=== PATIENT | female | born 1975 | race Caucasian/White ===

== ENCOUNTER 2018-01-31 11:28 | Outpatient (REF) | payer OTHER, SELFPAY ==
[2018-01-31 22:06] LABS: TSH 1.38 uIU/mL (0.358-3.74)
== END 2018-01-31 11:29 ==
LOC: NCHCN 11:28
PROVIDERS: PCP Nurse Practitioner Family; Visit Provider Registered Nurse
DX: R53.83 Other fatigue (principal)
CPT/HCPCS: 84443

== ENCOUNTER 2019-04-03 08:56 | Outpatient (REF) | payer OTHER, SELFPAY ==
[2019-04-03 22:41] LABS: Calculated LDL 84 mg/dL; Cholesterol 193 mg/dL (50-200); Glucose 89 mg/dL (70-100); HDL Cholesterol 98 mg/dL (40-60); Triglyceride 56 mg/dL (30-150)
== END 2019-04-03 09:16 ==
LOC: NCHCN 08:56
PROVIDERS: PCP Nurse Practitioner Family; Visit Provider Registered Nurse
DX: R03.0 Elevated blood-pressure reading, without diagnosis of hypertension (principal); Z13.220 Encounter for screening for lipoid disorders; Z13.1 Encounter for screening for diabetes mellitus
CPT/HCPCS: 80061; 82947

== ENCOUNTER 2019-04-05 19:01 | Outpatient (REF) | payer OTHER, SELFPAY ==
[2019-04-09 13:33] LABS: Chlamydia Result Negative (Negative); GC Result Negative (Negative); Specimen Description VAGINAL
== END 2019-04-05 19:21 ==
LOC: NCHCN 19:01
PROVIDERS: PCP Nurse Practitioner Family; Visit Provider Nurse Practitioner Family
DX: Z11.3 Encounter for screening for infections with a predominantly sexual mode of transmission (principal)
CPT/HCPCS: 87491; 87591

== ENCOUNTER 2020-04-10 08:46 | Outpatient (REF) | payer OTHER, SELFPAY ==
--- NOTE | 2020-04-10 08:30 | PAPFT_PTH ---
PATIENT: Jena Morejon LOC: [facility]#:[id number] AGE/SX: 45/F ROOM: RE04/10/[address]: Abbey Elizondo : 1975 BED: DIS: 04/10/2020 SPEC #: [id number] RECD: 04/11/20 12:58 STATUS: ALYSSA REQ #: [id number] MADELEINE: 04/10/20 08:[address]: Abbey Elizondo DEPT: [facility] Cytology RECD BY: Abigail Rao ENTERED: 04/11/20 12:58 SP TYPE: PAPFT OTHR DR: Latonia Norman Tissues: 1 - CX/ENDOCX FOR PAP SMEARS Procedures: PAP THIN PREP/[facility] Screening Comments: [id number] (CHLAMYDIA/GC)
[2020-04-10 21:05] LABS: Calculated LDL 84 mg/dL (<100); Cholesterol 183 mg/dL (<200); Glucose 88 mg/dL (74-106); HDL Cholesterol 87 mg/dL (40-60); Triglyceride 61 mg/dL (<150)
[2020-04-15 07:15] LABS: Chlamydia Result Negative (Negative); GC Result Negative (Negative)
== END 2020-04-10 09:06 ==
LOC: NCHCN 08:46
PROVIDERS: PCP Nurse Practitioner Family; Visit Provider Registered Nurse
DX: Z00.00 Encounter for general adult medical examination without abnormal findings (principal); Z13.220 Encounter for screening for lipoid disorders; Z11.3 Encounter for screening for infections with a predominantly sexual mode of transmission; Z12.4 Encounter for screening for malignant neoplasm of cervix; R87.611 Atypical squamous cells cannot exclude high grade squamous intraepithelial lesion on cytologic smear of cervix (ASC-H)
CPT/HCPCS: 80061; 82947; 87491; 87591; 88142

== ENCOUNTER 2020-05-05 16:41 | Outpatient (REF) | payer OTHER, SELFPAY ==
[2020-05-08 14:30] LABS: SARS-CoV-2 RNA Undetected (Undetected); SARS-CoV-2 Specimen Source Nasal
== END 2020-05-05 17:01 ==
LOC: NCHCN 16:41
PROVIDERS: PCP Nurse Practitioner Family; Visit Provider Nurse Practitioner Family
DX: J06.9 Acute upper respiratory infection, unspecified (principal)
CPT/HCPCS: U0003

== ENCOUNTER 2020-05-06 18:43 | Outpatient (REF) | payer OTHER, SELFPAY | END 2020-05-06 19:03 | LOC: NCHCN 18:43 | PROVIDERS: PCP Nurse Practitioner Family; Visit Provider Nurse Practitioner Family | DX: J02.9 Acute pharyngitis, unspecified (principal) | CPT/HCPCS: 87070 ==

== ENCOUNTER 2021-02-20 16:26 | Outpatient (REF) | payer OTHER, SELFPAY ==
[2021-02-20 20:32] LABS: Abs Immature Grans 0.02 10^3/uL (0.0-0.06); Absolute Basophil Count 0.05 10^3/uL (0.0-0.2); Absolute Eosinophil Count 0.07 10^3/uL (0.0-0.7); Absolute Lymphocyte Count 1.77 10^3/uL (1.2-3.4); Absolute Monocyte Count 0.82 10^3/uL (0.1-0.8); Absolute Neutrophil Count 7.17 10^3/uL (1.2-6.7); Basophils % 0.5; Eosinophils % 0.7; HCT 44.5 % (36.0-46.0); HGB 15.2 g/dL (11.2-15.7); Immature Grans % 0.2; Lymphocytes % 17.9; MCH 31.6 pg (27.0-33.0); MCHC 34.2 % (32.0-36.0); MCV 92.5 fL (80-95); MPV 10.3 fL (8.0-11.0); Monocytes % 8.3; Neutrophils % 72.4; Nucleated RBC 0 %; Platelet Count 353 10^3/uL (130-400); RBC 4.81 10^6/uL (3.93-5.22); RDW 12.7 % (11.7-14.6); RDW-SD 43.3 fL
[2021-02-20 20:54] LABS: ALT 52 U/L (14-59); AST 29 U/L (15-37); Albumin 4.4 g/dL (3.4-5.0); Alkaline Phosphatase 65 U/L (46-116); Anion Gap 9.5 mmol/L (3-11); BUN 9 mg/dL (7-18); Bilirubin, Total 0.7 mg/dL (0.2-1.0); CO2 27.5 mmol/L (21.0-32.0); CREATININE 0.7 mg/dL (0.55-1.02); Calcium 9.3 mg/dL (8.5-10.1); Chloride 97 mmol/L (98-107); Glucose 83 mg/dL (74-106); Lipase 76 U/L (73-393); Potassium 3.7 mmol/L (3.5-5.1); Sodium 134 mmol/L (136-145); Total Protein 7.4 g/dL (6.4-8.2)
== END 2021-02-20 16:27 | disposition home or self-care (01) ==
LOC: NCHCN 16:26
PROVIDERS: PCP Nurse Practitioner Family; Visit Provider Family Medicine
DX: R10.13 Epigastric pain (principal); R19.7 Diarrhea, unspecified
CPT/HCPCS: 80053; 83690; 87505; 85025

== ENCOUNTER 2021-04-17 08:40 | Outpatient (REF) | payer OTHER, SELFPAY ==
--- NOTE | 2021-04-17 08:30 | PAPFT_PTH ---
PATIENT: Jena Morejon LOC: [facility]#:[id number] AGE/SX: 46/F ROOM: RE04/17/[address]: Abbey Elizondo : 1975 BED: DIS: 04/17/2021 SPEC #: [id number] RECD: 04/17/21 17:40 STATUS: ALYSSA REQ #: [id number] MADELEINE: 04/17/21 08:[address]: Abbey Elizondo DEPT: [facility] Cytology RECD BY: Abigail Rao ENTERED: 04/17/21 17:41 SP TYPE: PAPFT OTHR DR: Latonia Norman Tissues: 1 - CX/ENDOCX FOR PAP SMEARS Procedures: PAP THIN PREP/UVM Screening HPV DNA PROBE Comments: [id number] (CHLAMYDIA/GC)
[2021-04-21 12:03] LABS: Chlamydia Result Negative (Negative); GC Result Negative (Negative)
== END 2021-04-17 08:41 | disposition home or self-care (01) ==
LOC: NCHCN 08:40
PROVIDERS: PCP Nurse Practitioner Family; Visit Provider Registered Nurse
DX: Z12.4 Encounter for screening for malignant neoplasm of cervix (principal); Z11.3 Encounter for screening for infections with a predominantly sexual mode of transmission; Z11.51 Encounter for screening for human papillomavirus (HPV)
CPT/HCPCS: 87491; 87591; 88142; 87624

== ENCOUNTER 2023-01-05 10:45 | Outpatient (REF) | payer OTHER, SELFPAY | END 2023-01-05 10:46 | disposition home or self-care (01) | LOC: NCHCN 10:45 | PROVIDERS: PCP Nurse Practitioner Family; Visit Provider Registered Nurse | DX: R30.0 Dysuria (principal) | CPT/HCPCS: 87086 ==

== ENCOUNTER 2023-07-01 11:30 | Outpatient (REF) | payer OTHER, SELFPAY ==
--- OUTSIDE RECORDS SUMMARY | 2023-07-01 11:32 | XMS_ITS | Continuity of Care Document ---
Author Name [facility] Address [address] [place] [address] Organization [facility] Address [address] [place] [address] Allergies, Adverse Reactions, Alerts No allergy information available. Medications No medication information available. Problem List No problem information available. Procedures No known history of procedures. Relevant Diagnostic Tests and/or Laboratory Data No known relevant diagnostic tests, laboratory data, and/or discharge summary. Hospital Discharge Instructions No known hospital discharge instructions. Functional Status No known functional status. Immunizations No known immunizations. Payers Payer Name Policy Type Covered Libertarian Covered Libertarian Id Relationship Subscriber Subscriber Id [employer]ET[employer] Commercial RAI DOMINGO [id number] Self/Same as Patient RAI DOMINGO [id number] SELF PAY Personal Plan of Care No Known Plan of Care Information Social History No known social history. Vital Signs No known vital signs results.
--- OUTSIDE RECORDS SUMMARY | 2023-07-01 11:32 | XMS_ITS | CCD ---
Author Name Unknown Address [address] [place] [address] [id number] Organization Unknown Address [address] [place] [address] [phone] Care Team Providers Care Bumper Straightener Name Role Phone NIMISHA RADER Attending Physician [phone] NIMISHA RADER Rounding (Secondary) Physician [phone] Vital Signs Unknown or Not Available. Allergies Unknown or Not Available. Procedures Unknown or Not Available. History of Immunizations Unknown or Not Available. Problems Unknown or Not Available. Results Unknown or Not Available. Active Medications Unknown or Not Available. Medications Administered During Visit Unknown or Not Available. Encounters Encounter Diagnosis Diagnosis Code Start Date Carpal tunnel syndrome, right upper limb [id number] 03/09/2022 Social History Smoking Status Code Start Date End Date Current some day smoker [id number] 08/19/2019 Patient Decision Aids Unknown or Not Available. Discharge Instructions You were admitted to [facility] on 03/09/2022 13:11 with a principal diagnosis of CTS of right arm You were discharged from [facility] on 03/09/2022 00:00 Should you have any questions prior to discharge, please contact a member of your healthcare team. If you have left the hospital and have any questions, please contact your primary care physician. Chief Complaint and Reason For Visit Unknown or Not Available. Function Status Unknown or Not Available. Plan of Care Unknown or Not Available. Referral/Transition of Care Unknown or Not Available.
--- OUTSIDE RECORDS SUMMARY | 2023-07-01 11:32 | XMS_ITS | Continuity of Care Document ---
Author Name [facility] Address [address] [place] [address] Organization [facility] Address [address] [place] [address] Care Team Providers Care Basketballs And Footballs Reverser Name Role Phone Maurilio Ch Primary Care Physician Allergies, Adverse Reactions, Alerts No known allergies. Medications Active Medications Medication Dose Units Route Sig Qty Start Date St atus Multi Vitamin February 21, 2020 Active Naproxen 500 MG ORAL TWICE A DAY PRN For pain 30 February 21, 2020 Active Discontinued Medications Medication Dose Units Route Sig Qty Start Date Discontin ued Date Status Dextroamphetamin e-Amphetamine ORAL FebruaryFebruary 21, 2020 Discontinued Problem List Active Problems Medical Problem Onset Date Status Acute wrist pain Active Procedures Procedure Date Status Finger(s) 2 vw Min LT November 14, 2019 completed Relevant Diagnostic Tests and/or Laboratory Data No known relevant diagnostic tests, laboratory data, and/or discharge summary. Hospital Discharge Instructions Additional Discharge Instructions Continue to use ice compression 20min on and 20min off 3x-4x daily then consider warm compression Continue to use the right wrist brace support for the next 10-14 days especially at work and take it off when at home You can take Naproxen 500mg every 12 hours (do not combine with ibuprofen) and/or Tylenol 500mg every 4 hours for pain for 3-5 days. Please f/u with PCP for further evaluation of the wrist sprain if pain persist Return to clinic/er if symptoms worsening such as increase pain, redness/swelling/numbness/tingling, fever/chills Instruction/Education Provided COVID 19 General Instructions- decrease the spread of coronavirus ([facility]) Hospital Discharge Medications Medication Dose Units Route Sig Qty Days Order Date Status Ins tructions Dextroampheta mine-Amphetam ine ORAL February 21, 2020 Discontinued Multi Vitamin Se ptember 2019 Active Naproxen 500 MG ORAL TWICE A DAY PRN For pain 30 February 21, 2020 Active Encounters Encounter Facility Location Admit/Visit Date Discharge/Departure Date Attending Provider Departed Emergency [facility] Urgent [facility] February 21, 2020 4:55pm February 21, 2020 6:34pm Departed Clinical [facility] DI Walk In [facility] November 14, 2019 8:57am November 14, 2019 8:58am Tanya Ly Functional Status Query Response Date Recorded Comment Living Situation With Family February 21, 2020 6:17pm Immunizations No known immunizations. Payers Payer Name Policy Type Covered Alliance Party Covered Alliance Party Id Relationship Subscriber Subscriber Id AETNA Commercial RAI CHAYO [id number] Self/Same as Patient RAI CHAYO [id number] [employer] Commercial RAI CHAYO [id number] Self/Same as Patient RAI CHAYO [id number] SELF PAY Personal Plan of Care Instructions COVID 19 General Instruction s- decrease the spread of coronavirus ([facility]) Social History Query Response Date Recorded Comment Alcohol Use No February 21, 2020 6:17pm Smoking Status Never smoker February 21, 2020 6:17pm substance use type does not use February 21, 2020 6:17 pm Query Response Start Date Stop Date Smoking Status Never smoker Vital Signs Vital Reading Result Reference Range Collection Date/Time Height 5 ft 7 in February 20 5:35pm Weight 64.864 kg February 20 5:35pm Temperature 98.2 F 97.6 F-99.6 F February 20 020 5:35pm Pulse 65 BPM 60-100 February 20 5:35pm Respiration 20 RPM 12-February 20 5:35pm Pulse Oximetry 98 % 95-100 February 21, 2020 5:35pm Blood Pressure Systolic 118 100-140 Sept emb2019 5:35pm Blood Pressure Diastolic 61 50-85 Sep tember 2019 5:35pm Body Mass Index 22.4 February 21, 2020 5:35pm
--- OUTSIDE RECORDS SUMMARY | 2023-07-01 11:32 | XMS_ITS | Continuity of Care Document ---
Author Name Unknown Address [address] [place] [address] [facility] Address [address] [place] [address] Phone Care Team Providers Care Smalltalk Developer Name Role Phone Maurilio Ch Primary Care Provider LUCY Ly Attending Provider [phone] Allergies, Adverse Reactions, Alerts No known allergies. Medications Medication Status Dose Units Route Sig Qty Days Start Date End Date Instructions Dextroamphe tamine-Amph etamine Discontinue d PO February 21, 2020 5:33pm Septembe r 2019 5:34pm Multi Vitamin Active February 21, 2020 5:34pm Naproxen Active 500 MG PO TWICE A DAY February 21, 2020 6:28pm Problems Active Problems Medical Problem Onset Date Status Acute wrist pain Active Procedures Procedure Date Performed Status Finger(s) 2 vw Min LT November 14, 2019 12:00am com pleted Relevant Diagnostic Tests and/or Laboratory Data Diagnostic Imaging Reports Report Dictated Date/Time Dictated By Status Radiology Report November 14, 2019 10:17am Sweetie su MD completed [facility] RADIOLOGY REPORT PATIENT NAME: RAI DOMINGO 2614 DATE OF : 1975 ATTENDING/ER PHYSICIAN: Tanya Ly NP ER/ATTENDING PHYSICIAN: PRIMARY CARE PHYS: Maurilio Ch MD ADMITTING PHYSICIAN: CONSULTING PHYSICIAN: PROCEDURE DATE: 11/14/19 REPORT STATUS: Signed DICTATING PHYSICIAN: Sweetie Cannon MD REASON FOR EXAM: DISTAL IP JOINT FINGER PAIN, LEFT INDEX STUDY: Finger(s) 2 vw Min LT CLINICAL HISTORY: Distal interphalangeal joint finger pain of left index finger. COMPARISON: None. FINDINGS/IMPRESSION: There is no acute fracture or dislocation. No radiopaque foreign bodies are noted within the soft tissues. There are no significant degenerative changes. dd: 11/14/19 1017 <Electronically signed by Sweetie Cannon MD in OV> 11/14/19 1018 Advance Directives Advance Directive Response Recorded Date/ Time Does patient have an Advanced Directive? No December 03, 2013 9:28am Do we have a copy on file here at [facility]? No November 13, 2019 4:15pm Pt has a Living Will? No December 03, 2013 9:28am Do we have a copy on file here at [facility]? No November 13, 2019 4:15pm Pt has a Power of Assembler Steam [employer] Turbine? No December 03, 2013 9:28am Do we have a copy on file here at [facility]? No November 13, 2019 4:15pm Chief Complaint and Reason for Visit Chief Complaint LT FINGER-LT FINGER PAIN/INJURY Encounters Encounter Location(s) Arrival/Admit Date Discharge/Depart Date Provider(s) Departed Clinical [facility] In [facility] November 14, 2019 8:57am November 14, 2019 8:58am Chetna Martínez NP Departed Emergency [facility] [facility] Urgent [facility] February 21, 2020 4:55pm February 21, 2020 6:34pm null Assessments No Assessments Information Available Functional Status Observation Response Date Recorded Living Situation With Family February 21, 2020 6:17pm Goals Goals may be documented in an alternate section. Mental Status No Mental Status Information Available Medical Equipment No Medical Equipment Information available Insurance Providers Guarantor RAI DOMINGO Address [address] [place] [id number] Contact Info. Home Phone: Payer Policy Id Coverage Id Subscriber's Name Subscriber Id Effective Date Expiration Date ZACKERY [id number] RAI DOMINGO [id number] [employer] [id number] 1 [id number] RAI DOMINGO [id number] SELF PAY Self N/A Plan of Treatment Future Tests Future scheduled test information is unavailable Pending Tests Pending diagnostic test information is unavailable Future Visits Future appointment information is unavailable Referrals to Other Providers Reason for Referral Referral Start Date Provider Provider Contact Information Provider Address Maurilio Ch MD Work Phone: [address] [facility] [address] Future Procedures Future procedure information is unavailable Future Medications Future medication information is unavailable Patient Instructions COVID 19 General Instruction s- decrease the spread of coronavirus ([facility]) Social History Smoking Status Status Date of Observation Never smoked tobacco (finding) February 21, 2020 6:17pm Observation Status Observation Response Date of Response Alcohol Use No February 20 6:17pm substance use type does not use February 6:17pm Smoking Status Never smoker February 20 6:17pm Assigned Sex Female Vital Signs Vital Reading Result Reference Range Collection Date/Time Height 67 [in_i] February 21, 2020 5:35pm Weight 64.86 kg February 21, 2020 5:35pm Body Temperature 98.2 [degF] 97.6-99.6 February 202019 5:35pm Heart Rate 65 /min 60-100 February 21, 2020 5:35pm Respiratory rate 20 /min 12-24 February 202019 5:35pm Oxygen saturation by Pulse oximetry 98 % 95-100 February 21, 2020 5:35pm BP Systolic 118 mm[Hg] 100-140 February 21, 2020 5:35pm BP Diastolic 61 mm[Hg] 50-85 February 21, 2020 5:35pm BMI (Body Mass Index) 22.4 kg/m2 2019 5:35pm
--- OUTSIDE RECORDS SUMMARY | 2023-07-01 11:32 | XMS_ITS | Continuity of Care Document ---
Author Name [facility] Address [address] [place] [address] Organization [facility] Address [address] [place] [address] Care Team Providers Care Guest Services Attendant Name Role Phone Maurilio Ch Primary Care Physician Tanya Ly Attending Physician [phone] Allergies, Adverse Reactions, Alerts No allergy information available. Medications No medication information available. Problem List No problem information available. Procedures Procedure Date Status Finger(s) 2 vw Min LT November 14, 2019 completed Relevant Diagnostic Tests and/or Laboratory Data No known relevant diagnostic tests, laboratory data, and/or discharge summary. Chief Complaint and Reason for Visit Encounter Admit Date Chief Complaint Reason for V isit Departed Clinical November 14, 2019 8:57am LT FINGER- LT FINGER PAIN/INJURY Hospital Discharge Instructions No known hospital discharge instructions. Encounters Encounter Facility Location Admit/Visit Date Discharge/Departure Date Attending Provider Departed Clinical [facility] DI Walk In [facility] November 14, 2019 8:57am November 14, 2019 8:58am Tanya Ly Functional Status No known functional status. Immunizations No known immunizations. Payers Payer Name Policy Type Covered Alliance Party Covered Alliance Party Id Relationship Subscriber Subscriber Id [employer]ET[employer] Commercial RAI CHAYO [id number] Self/Same as Patient RAI CHAYO [id number] [employer] Commercial RAI CHAYO [id number] Self/Same as Patient RAI CHAYO [id number] SELF PAY Personal Plan of Care No Known Plan of Care Information Social History No known social history. Vital Signs No known vital signs results.
--- OUTSIDE RECORDS SUMMARY | 2023-07-01 11:32 | XMS_ITS | CCD ---
Author Name Unknown Address [address] [place] [address] [phone] Organization Unknown Address [address] [place] [address] [phone] Care Team Providers Care Industrial Chemicals Supervisor Name Role Phone HAYDEE PRICE Attending Physician [phone] Vital Signs Unknown or Not Available. Allergies Unknown or Not Available. Procedures Unknown or Not Available. History of Immunizations Unknown or Not Available. Problems Unknown or Not Available. Results Unknown or Not Available. Active Medications Unknown or Not Available. Medications Administered During Visit Unknown or Not Available. Encounters Encounter Diagnosis Diagnosis Code Start Date Abnormal uterine and vaginal bleeding, unspecifi ed N939 04/05/2023 Social History Smoking Status Code Start Date End Date Current some day smoker [id number] 08/19/2019 Patient Decision Aids Unknown or Not Available. Discharge Instructions You were admitted to [facility] on 04/05/2023 12:43 with a principal diagnosis of Abnormal uterine and vaginal bleeding, unspecified You were discharged from [facility] on 04/05/2023 12:43 Should you have any questions prior to discharge, please contact a member of your healthcare team. If you have left the hospital and have any questions, please contact your primary care physician. Chief Complaint and Reason For Visit Chief Complaint Date of Onset UTERINE BLEEDING Function Status Unknown or Not Available. Plan of Care Unknown or Not Available. Referral/Transition of Care Unknown or Not Available.
--- OUTSIDE RECORDS SUMMARY | 2023-07-01 11:32 | XMS_ITS | Continuity of Care Document ---
Author Name Unknown Address [address] [place] [address] Phone Organization [facility] Address [address] [place] [address] Phone Care Team Providers Care Glass Products Inspector Name Role Phone Maurilio Ch Primary Care Provider LUCY Ly Attending Provider [phone] Allergies, Adverse Reactions, Alerts No allergy information available. Medications No medication information available. Problems No problem information available. Procedures Procedure Date Performed Status Finger(s) 2 vw Min LT November 14, 2019 12:00am com pleted Relevant Diagnostic Tests and/or Laboratory Data Diagnostic Imaging Reports Report Dictated Date/Time Dictated By Status Radiology Report November 14, 2019 10:17am Sweetie su MD completed [facility] RADIOLOGY REPORT PATIENT NAME: RAI DOMINGO 2414 [...] have a copy on file here at [facility]? No November 13, 2019 4:15pm Pt has a Living Will? No December 03, 2013 9:28am Do we have a copy on file here at [facility]? No November 13, 2019 4:15pm Pt has a Power of Blanket Winder Helper? No December 03, 2013 9:28am Do we have a copy on file here at [facility]? No November 13, 2019 4:15pm Chief Complaint and Reason for Visit Chief Complaint LT FINGER-LT FINGER PAIN/INJURY Encounters Encounter Location(s) Arrival/Admit Date Discharge/Depart Date Provider(s) Departed Clinical [facility]- Walk In [facility] November 14, 2019 8:57am November 14, 2019 8:58am Chetna Martínez NP Assessments No Assessments Information Available Functional Status No Functional Status information available Goals Goals may be documented in an alternate section. Mental Status No Mental Status Information Available Medical Equipment No Medical Equipment Information available Insurance Providers Guarantor RAI DOMINGO Address [address] [place] [address] Contact Info. Home Phone: Payer Policy Id Coverage Id Subscriber's Name Subscriber Id Effective Date Expiration Date A[employer] [id number] RAI DOMING[facility] [id number] [id number] 1 [id number] RAI DOMINGO [id number] SELF PAY Self N/A Social History Assigned Sex Female
--- OUTSIDE RECORDS SUMMARY | 2023-07-01 11:32 | XMS_ITS | CCD ---
Author Name Unknown Address [address] [place] [address] [phone] Organization Unknown Address [address] [place] [address] [phone] Care Team Providers Care Can Dragger Name Role Phone KEIKO APPLE Attending Physician [phone] Vital Signs Unknown or Not Available. Allergies Unknown or Not Available. Procedures Unknown or Not Available. History of Immunizations Unknown or Not Available. Problems Unknown or Not Available. Results Unknown or Not Available. Active Medications Unknown or Not Available. Medications Administered During Visit Unknown or Not Available. Encounters Encounter Diagnosis Diagnosis Code Start Date Diarrhea, unspecified R197 03/02/2021 Social History Smoking Status Code Start Date End Date Current some day smoker [id number] 08/19/2019 Patient Decision Aids Unknown or Not Available. Discharge Instructions You were admitted to [facility] on 03/02/2021 09:01 with a principal diagnosis of Diarrhea, unspecified You were discharged from [facility] on 03/02/2021 09:01 Should you have any questions prior to [...]
--- OUTSIDE RECORDS SUMMARY | 2023-07-01 11:32 | XMS_ITS | Continuity of Care Document ---
Author Name [facility] Address [address] [place] [address] Organization [facility] Address [address] [place] [phone] Allergies, Adverse Reactions, Alerts No allergy information [...] immunizations. Payers Payer Name Policy Type Covered Green Party Covered Green Party Id Relationship Subscriber Subscriber Id [employer]ET[employer] Commercial RAI DOMINGO [id number] Self/Same as Patient RAI DOMINGO [id number] SELF PAY Personal Plan of Care No Known Plan of Care Information Social History No known social history. Vital Signs No known vital signs results.
[2023-07-01 16:10] LABS: Anion Gap 8.1 mmol/L (3-11); BUN 10 mg/dL (7-18); CO2 25.9 mmol/L (21.0-32.0); CREATININE 0.7 mg/dL (0.55-1.02); Chloride 103 mmol/L (98-107); Estimated GFR 107.95 (mL/min/1.73m2); Glucose 99 mg/dL (74-106); Potassium 3.7 mmol/L (3.5-5.1); Sodium 137 mmol/L (136-145); TSH (W/Ref FT4) 1.39 uIU/mL (0.36-3.74)
[2023-07-01 17:06] LABS: Vitamin D 25 Total 33.7 ng/mL (30-100)
[2023-07-01 17:20] LABS: Hemoglobin A1C 5.1 % (<5.7)
== END 2023-07-01 11:31 | disposition home or self-care (01) ==
LOC: NCHCN 11:30
PROVIDERS: PCP Nurse Practitioner Family; Visit Provider Family Medicine
DX: E55.9 Vitamin D deficiency, unspecified (principal); R73.9 Hyperglycemia, unspecified; R03.0 Elevated blood-pressure reading, without diagnosis of hypertension; R00.2 Palpitations
CPT/HCPCS: 80048; 82306; 83036; 84443

== ENCOUNTER 2023-09-30 13:09 | Outpatient (REF) | payer OTHER, SELFPAY ==
--- NOTE | 2023-09-30 09:45 | PAPFT_PTH ---
PATIENT: Jena Morejon LOC: [facility]#:[id number] AGE/SX: 48/F ROOM: RE09/30/[address]: DOMINGA: 1975 BED: DIS: 09/30/2023 SPEC #: [id number] RECD: 09/30/23 17:00 STATUS: ALYSSA BACH #: [id number] MADELEINE: 09/30/23 09:[address]: Jody Harmon [facility] Cytology RECD BY: Abigail Rao ENTERED: 09/30/23 17:01 SP TYPE: PAPFT OTHR DR: Latonia Norman Tissues: 1 - CX/ENDOCX FOR PAP SMEARS Procedures: PAP THIN PREP/[facility] Screening HPV DNA PROBE Comments: [id number] (CHLAMYDIA/GC)
[2023-10-01 13:20] LABS: Chlamydia Result Negative (Negative); GC Result Negative (Negative)
== END 2023-09-30 13:10 | disposition home or self-care (01) ==
LOC: NCHCN 13:09
PROVIDERS: PCP Nurse Practitioner Family; Visit Provider Family Medicine
DX: Z11.51 Encounter for screening for human papillomavirus (HPV) (principal); Z12.4 Encounter for screening for malignant neoplasm of cervix
CPT/HCPCS: 87491; 87591; 88142; 87624

== ENCOUNTER 2024-04-20 11:59 | Outpatient (REF) | payer OTHER, SELFPAY ==
[2024-04-23 12:05] LABS: Chlamydia Result Negative (Negative); GC Result Negative (Negative)
== END 2024-04-20 12:00 | disposition home or self-care (01) ==
LOC: NCHCN 11:59
PROVIDERS: PCP Nurse Practitioner Family; Visit Provider Family Medicine
DX: Z11.3 Encounter for screening for infections with a predominantly sexual mode of transmission (principal)
CPT/HCPCS: 87491; 87591

== ENCOUNTER 2024-12-19 21:34 | Outpatient (REF) | payer OTHER, SELFPAY ==
[2024-12-20 12:16] LABS: Chlamydia Result Negative (Negative); GC Result Negative (Negative)
== END 2024-12-19 21:35 | disposition home or self-care (01) ==
LOC: NCHCN 21:34
PROVIDERS: Visit Provider Family Medicine
DX: Z11.3 Encounter for screening for infections with a predominantly sexual mode of transmission (principal)
CPT/HCPCS: 87491; 87591